=== PATIENT | female | born 1940 | race Caucasian/White ===

== ENCOUNTER → 2017-01-19 | Outpatient (CLI) | payer MEDICARE ==
[~2017-01-19] MED LIST: FLAX SEED OIL1 EACH PO; GAVISCON1 TAB PO; GLUCOPHAGE XR500 MG PO; GLUCOTROL XL5 MG PO; MIRALAX17 GM PO; MIRALAX510 GM PO; RA PROBIOTIC C PO; SENNA-S TABLET1 EACH PO; SYNTHROID88 MCG PO; TRIAMCINOLONE A15 GM TOP; TYLENOL EXTRA500 MG PO; VITAMIN B-121000 MCG PO; VITAMIN D31000 UNI1 PO; [UNRECOGNIZED DRUG - CODE] PO
== END | disposition short-term general hospital (02) ==
LOC: CLUROL 08:42
DX: N39.0 Urinary tract infection, site not specified (principal); N39.41 Urge incontinence; R33.9 Retention of urine, unspecified

== ENCOUNTER → 2017-02-16 | Outpatient (CLI) | payer MEDICARE | END | disposition short-term general hospital (02) | LOC: CLUROL 03:41 | DX: N39.0 Urinary tract infection, site not specified (principal); R35.0 Frequency of micturition; R32 Unspecified urinary incontinence; R39.15 Urgency of urination ==